=== PATIENT | female | born 1965 | race Caucasian/White ===

== ENCOUNTER 2021-09-24 18:29 | Emergency (ER) | payer OTHER ==
[2021-09-24 18:57] VITALS: BP 136/73; PULSE 86; TEMP 98.9; BMI 37.9
[2021-09-24] MEDS ORDERED: ASPIRIN 325 MG TABLET PO ONE (19:42)
[2021-09-24] MEDS ORDERED: ASPIRIN 325 MG TABLET ONE (19:48)
[2021-09-24 20:01] LABS: ALBUMIN 4.4 g/dl (3.4-5.0); BILIRUBIN,TOTAL 0.7 mg/dl (0.2-1); CALCIUM 10.1 mg/dl (8.5-10); CREATININE 0.6 mg/dl (0.55-1.3); TOT PROT 7.5 g/dl (6.4-8.2)
[2021-09-24 21:47] LABS: BASO % 0.9 % (0-2.0); EOS % 1.9 % (0-4.5); HEMATOCRIT 40.9 % (32.4-45.2); LYMPH % 30.8 % (8-40); MCH 29.8 pg (25.7-33.7); MCHC 34.3 g/dl (32.0-36.0); MEAN CELL VOLUME 86.8 fl (80-96); MEAN PLT VOLUME 8.6 fl (7.5-11.1); MONO % 5.2 % (3.8-10.2); NEUT % 61.2 % (42.8-82.8); PLATELET COUNT 252 10^3/uL (134-434); RBC 4.71 M/mm3 (3.60-5.2); RDW 14.2 % (11.6-15.6); WHITE BLOOD COUNT 9.7 K/mm3 (4.0-10.0)
== END 2021-09-24 22:12 | disposition home or self-care (01) ==
LOC: FER 18:29
DX: R07.89 Other chest pain (principal)
CPT/HCPCS: 36415; 71045-TC-FY; 80053; 82550; 84484; 85025; 93005; 99285-25

== ENCOUNTER 2023-02-03 03:51 | Day surgery (SDC) | payer OTHER ==
[2023-01-30 14:08] VITALS: BMI 38.7
[2023-02-03] MEDS ORDERED: oxyCODONE HCL 5 MG TABLET PO PRN ×3 (07:33→07:40)
[2023-02-03] MEDS ORDERED: ONDANSETRON 4 MG/2 ML VIAL IVPUSH PRN ×2 (07:33→07:40)
[2023-02-03] MEDS ORDERED: PROMETHAZINE HCL 25 MG/1 ML VIAL IVPB PRN (07:33)
[2023-02-03] MEDS ORDERED: ACETAMINOPHEN 1000 MG/100 ML BAG IVPB PRN (07:34)
[2023-02-03] MEDS ORDERED: PROPOFOL 20 ML ONE (07:39)
[2023-02-03] MEDS ORDERED: DEXAMETHASONE SOD PHOSPHATE 4 MG/1 ML VIAL ONE (07:40)
[2023-02-03] MEDS ORDERED: KETOROLAC TROMETHAMINE 30 MG/1 ML VIAL ONE (07:40)
[2023-02-03] MEDS ORDERED: IBUPROFEN 600 MG TABLET (FP) PO PRN (07:40)
[2023-02-03] MEDS ORDERED: LIDOCAINE HCL/PF 2% SDV 5ML VIAL ONE (07:40)
[2023-02-03] MEDS ORDERED: IBUPROFEN 800 MG/8 ML IJ IVPB PRN (07:40)
[2023-02-03] MEDS ORDERED: LACTATED RINGERS SOLUTION 1,000 ML IV SCH (07:45)
[2023-02-03] MEDS ORDERED: ELECTROLYTE-148 SOLN 1,000 ML IV SCH (07:45)
[2023-02-03 09:27] VITALS: RESP 20
[2023-02-03 12:19] VITALS: BP 118/63; PULSE 76; TEMP 97.8
== END 2023-02-03 12:15 | disposition home or self-care (01) ==
LOC: JASU-SURG 03:51
PROVIDERS: ATTEND Obstetrics & Gynecology
PROC: 0UB98ZZ Excision of Uterus, Via Natural or Artificial Opening Endoscopic (ICD-10-PCS; 2023-02-03)
PROC: 0UBC8ZZ Excision of Cervix, Via Natural or Artificial Opening Endoscopic (ICD-10-PCS; principal; 2023-02-03 07:30)
DX: N84.0 Polyp of corpus uteri (principal); N84.1 Polyp of cervix uteri; E66.01 Morbid (severe) obesity due to excess calories
CPT/HCPCS: 88305-TC; 94760

== ENCOUNTER 2024-07-04 09:36 | Emergency (ER) | payer OTHER ==
[2024-07-04 09:44] VITALS: RESP 18; BMI 33.9
[2024-07-04] MEDS: DALBAVANCIN HCL 1,500 MG in DEXTROSE 5%-WATER - 500 ML IVPB ONE (12:00)
[2024-07-04 14:36] VITALS: BP 130/72; PULSE 72; TEMP 97.8
== END 2024-07-04 14:30 | disposition home or self-care (01) ==
LOC: FER 09:36
DX: L03.115 Cellulitis of right lower limb (principal)
CPT/HCPCS: 93971-TC; 99284-25; J0875